=== PATIENT | male | born 1990 | race Caucasian/White ===

== ENCOUNTER 2017-02-04 18:31 | Emergency (ER) | payer SELFPAY ==
[~2017-02-04] VITALS: Ht 177.8 cm; Wt 59.0 kg
[~2017-02-04 18:31] MED LIST: IBUP800T23 PO; TRAM50 PO; Z.0.NO CURRENT MEDS
[2017-02-04 18:33] VITALS: BP 160/76; PULSE 106; RESP 20; TEMP 98.8; O2SAT 97
--- NOTE | 2017-02-04 18:52 | PD ---
HPI Chief Complaint: Laceration/Skin Injury Time Seen by Provider: 18:47 Travel History International Travel<30 days: No Contact w/Intl Traveler<30days: No Traveled to known affect area: No History of Present Illness HPI Patient is a 26-year-old male presenting to emergency department evaluation of a laceration to his left wrist. Patient was putting a lawnmower back together when he cut his wrist on the blade. Patient states the area is sore, bleeding is controlled pain is a 3 out of 10. The patient is not up-to-date with tetanus vaccine. He has an allergy to pertussis. He has no other complaints at this time. He denies any numbness or tingling or weakness in his left arm and hand. PFSH Past Medical History Medical History: Denies Significant Hx ADHD: No Cancer: No Cardiovascular Problems: No Diabetes: No Diminished Hearing: No Psychiatric: No Migraines: No Seizures: No Thyroid Disease: No Ulcer: No Tetanus Vaccination: > 5 Years Past Surgical History Appendectomy: No Cholecystectomy: No Other Surgery: Yes (VARICELE REPAIR) Social History Alcohol Use: Yes (OCCASIONAL) Tobacco Use: Yes (1 PPD) Substance Use: No (OCC WEED) Allergies-Medications (Allergen,Severity, Reaction): Coded Allergies: Pertussis Vaccine (Verified Allergy, Mild, 01/29/14) Blue Dyes - Various (Verified Allergy, 01/29/14) Reported Meds & Prescriptions Reported Meds & Active Scripts Active Ibuprofen 800 Mg Tab 800 Mg PO TID PRN 10 Days Ultram (Tramadol HCl) 50 Mg Tab 50 Mg PO Q6 PRN FOR PAIN Reported No Current Meds (Miscellaneous Medication) Misc Review of Systems Except as stated in HPI: all other systems reviewed are Neg Skin: Positive Other (abrasion) Physical Exam Narrative GENERAL: Well-nourished, well-developed patient. SKIN: Focused skin assessment warm/dry. 1.5 cm superficial abrasion to left wrist on the palmar aspect. Positive radial pulse, brisk wasn't 3 second capillary refill. Patient is neurovascularly intact with full range of motion in left hand. HEAD: Normocephalic. EYES: No scleral icterus. No injection or drainage. NECK: Supple, trachea midline. No JVD or lymphadenopathy. CARDIOVASCULAR: Regular rate and rhythm without murmurs, gallops, or rubs. RESPIRATORY: Breath sounds equal bilaterally. No accessory muscle use. GASTROINTESTINAL: Abdomen soft, non-tender, nondistended. MUSCULOSKELETAL: No cyanosis, or edema. BACK: Nontender without obvious deformity. No CVA tenderness. Data Data Last Documented VS Vital Signs Date Time Temp Pulse Resp B/P Pulse Ox O2 Delivery O2 Flow Rate FiO2 02/04/17 18:33 98.8 106 20 160/76 97 Room Air MDM Medical Decision Making Medical Screen Exam Complete: Yes Emergency Medical Condition: Yes Interpretation(s) Vital Signs Date Time Temp Pulse Resp B/P Pulse Ox O2 Delivery O2 Flow Rate FiO2 02/04/17 18:33 98.8 106 20 160/76 97 Room Air Differential Diagnosis Laceration versus abrasion versus hemorrhage versus other Narrative Course Patient is a 26-year-old male presenting to the emergency room evaluation of an abrasion to his left wrist. Abrasion is very superficial, there is no active bleeding. Patient will be updated on his tetanus vaccine today. Wound will be thoroughly cleaned and dressed. Patient is encouraged to keep abrasion clean and dry and apply topical antibiotic ointment. He is encouraged to return to emergency department for any new or worsening symptoms. Patient verbalized understanding of instructions. Patient is stable for discharge. Diagnosis Primary Impression: Abrasion of wrist Qualified Code: S60.812A - Abrasion of wrist, left, initial encounter Additional Impressions: Need for vaccine for TD (tetanus-diphtheria) Encounter for vaccination Referrals: Primary Care Physician Patient Instructions: Abrasion (ED), Acute Wound Care (ED), General Instructions Additional Instructions: Keep abrasion clean and dry, apply topical antibiotic ointment and a Band-Aid Return to emergency department for any new or worsening symptoms Med/Other Pt SpecificInfo: No Change to Meds Disposition: 01 DISCHARGE HOME Condition: Stable Joanne Gregg CONTRACT ADMIN Feb 04, 2017 18:52
[2017-02-04] MEDS ORDERED: TETANUS/DIPHTHERIA TOXOID ADULT 0.5 ML VIAL IM ONE (19:00)
[2017-02-04 19:10] VITALS: BP 135/77
== END 2017-02-04 19:10 | disposition home or self-care (01) ==
LOC: NEPK 18:31
DX: S60.812A Abrasion of left wrist, initial encounter (principal); W45.8XXA Other foreign body or object entering through skin, initial encounter; Y93.89 Activity, other specified; Z23 Encounter for immunization
CPT/HCPCS: 90471; 90714

== ENCOUNTER 2017-08-08 18:21 | Inpatient (IN) | payer SELFPAY ==
[~2017-08-08] VITALS: Ht 177.8 cm; Wt 57.0 kg
[2017-08-08 18:25] VITALS: BP 142/78; PULSE 88; RESP 15; TEMP 98.4; O2SAT 97
--- NOTE | 2017-08-08 20:26 | PD ---
HPI Chief Complaint: Psychiatric Symptoms Time Seen by Provider: 19:53 Travel History International Travel<30 days: No Contact w/Intl Traveler<30days: No Traveled to known affect area: No History of Present Illness HPI 26-year-old male with history of bipolar disorder, anxiety, depression, schizoaffective disorder who has been off of his psychiatric meds for 1 year presents requesting psychiatric evaluation. Patient reports he has been hearing voices which are telling him to "hurt himself" for the last week. Patient reports that he has been able to manage these auditory hallucinations on his own but they're becoming more frequent and interfering with his daily life. He denies previous suicide attempts. He denies homicidal ideation. He is accompanied by his girlfriend. He denies any recent alcohol or illicit drug use. He does report to marijuana occasionally. [facility]LY [facility] Past Medical History Narrative Medical Anxiety, depression, bipolar disorder, schizoaffective disorder ADHD: No Cancer: No Cardiovascular Problems: No Diabetes: No Diminished Hearing: No Psychiatric: No Migraines: No Seizures: No Thyroid Disease: No Ulcer: No Past Surgical History Appendectomy: No Cholecystectomy: No Other Surgery: Yes (VARICELE REPAIR) Social History Alcohol Use: Yes (OCCASIONAL) Tobacco Use: Yes (1 PPD) Substance Use: No (OCC WEED) Allergies-Medications (Allergen,Severity, Reaction): Coded Allergies: Pertussis Vaccines (Unverified Allergy, Mild, 06/09/17) blue dye (Unverified Allergy, Unknown, 06/09/17) Reported Meds & Prescriptions Reported Meds & Active Scripts Active Ibuprofen 800 Mg Tab 800 Mg PO TID PRN 10 Days Ultram (Tramadol HCl) 50 Mg Tab 50 Mg PO Q6 PRN FOR PAIN Reported No Current Meds (Miscellaneous Medication) Misc Physical Exam Narrative GENERAL: Patient is calm and cooperative interacting appropriately with provider and staff SKIN: Warm and dry. HEAD: Normocephalic. EYES: No scleral icterus. No injection or drainage. NECK: Supple, trachea midline. No JVD or lymphadenopathy. CARDIOVASCULAR: Regular rate and rhythm without murmurs, gallops, or rubs. RESPIRATORY: Breath sounds equal bilaterally. No accessory muscle use. GASTROINTESTINAL: Abdomen soft, non-tender, nondistended. MUSCULOSKELETAL: No cyanosis, or edema. BACK: Nontender without obvious deformity. No CVA tenderness. PSYCHIATRIC: No delusional thought processes. No hallucinations. Data Data Last Documented VS Vital Signs Date Time Temp Pulse Resp B/P (MAP) Pulse Ox O2 Delivery O2 Flow Rate FiO2 08/08/17 18:25 98.4 88 15 142/78 (99) 97 Orders Orders Complete Blood Count With Diff (08/08/17 20:01) Comprehensive Metabolic Panel (08/08/17 20:01) Psych Screen (08/08/17 20:01) Drug Screen, Random Urine (08/08/17 20:01) MDM Medical Decision Making Medical Screen Exam Complete: Yes Emergency Medical Condition: Yes Differential Diagnosis bipolar disorder, mood disorder, schizoaffective disorder, suicidal ideation Narrative Course 26 year old male voluntarily requesting psychiatric evaluation. Patient has a history of bipolar disorder, schizoaffective disorder, anxiety, depression and has been off his meds for 1 year. He reports he has been hearing voices which are telling him to hurt himself. He will not elaborate on specifics. He reports that he has been able to control these thoughts and voices but they're now affecting his daily life. He denies homicidal ideation. He denies previous history of suicide attempts. Patient is here with his girlfriend. He will be evaluated and once medically cleared seat psychiatric evaluation. Mental health screening discussed with the patient. Psychiatric screen ordered. end of shift with labs pending. Carmelo BARONE will follow patient from this point. Monica Davila Aug 08, 2017 20:25
[2017-08-08 20:44] LABS: AUTOMATED NEUTROPHIL # 4.1 TH/MM3 (1.8-7.7); BASOPHIL # 0.1 TH/MM3 (0-0.2); BASOPHIL % 0.9 % (0.0-2.0); EOSINOPHIL % 0.3 % (0.0-4.0); HEMO FLAGS DIFF FINAL; LYMPH % 27.4 % (9.0-44.0); LYMPHOCYTE # 1.7 TH/MM3 (1.0-4.8); MEAN CELL VOLUME 90.2 FL (80.0-100.0); MEAN CORPUSCULAR HEMOGLOBIN 30.9 PG (27.0-34.0); MEAN CORPUSCULAR HGB CONC 34.2 % (32.0-36.0); MONO % 6.4 % (0.0-8.0); PLATELET COUNT 252 TH/MM3 (150-450); RED BLOOD COUNT 4.43 MIL/MM3 (4.50-5.90); RED CELL DISTRIBUTION WIDTH 12.7 % (11.6-17.2); WHITE BLOOD COUNT 6.3 TH/MM3 (4.0-11.0)
[2017-08-08 20:59] LABS: ANION GAP 7 MEQ/L (5-15); BICARBONATE 26.8 MEQ/L (21.0-32.0); BLOOD UREA NITROGEN 12 MG/DL (7-18); CHLORIDE 105 MEQ/L (98-107); GLOMERULAR FILTRATION RATE 78 ML/MIN (>89); POTASSIUM 3.4 MEQ/L (3.5-5.1); SODIUM (NA) 139 MEQ/L (136-145)
[2017-08-08 21:00] LABS: ALT (GPT) 22 U/L (12-78); AST (GOT) 16 U/L (15-37)
[2017-08-08 21:02] LABS: ALKALINE PHOSPHATASE 50 U/L (45-117); TOTAL BILIRUBIN ADULT 0.6 MG/DL (0.2-1.0)
--- NOTE | 2017-08-08 21:20 | PD ---
Physical Exam Date Seen by Provider: Aug 08, 2017 Time Seen by Provider: 21:18 Data Data Last Documented VS Vital Signs Date Time Temp Pulse Resp B/P (MAP) Pulse Ox O2 Delivery O2 Flow Rate FiO2 08/08/17 18:25 98.4 88 15 142/78 (99) 97 Orders Orders Complete Blood Count With Diff (08/08/17 20:01) Comprehensive Metabolic Panel (08/08/17 20:01) Psych Screen (08/08/17 20:01) Drug Screen, Random Urine (08/08/17 20:01) Labs Laboratory Tests Test 08/08/17 20:10 08/08/17 20:12 White Blood Count 6.3 TH/MM3 Red Blood Count 4.43 MIL/MM3 Hemoglobin 13.7 GM/DL Hematocrit 40.0 % Mean Corpuscular Volume 90.2 FL Mean Corpuscular Hemoglobin 30.9 PG Mean Corpuscular Hemoglobin Concent 34.2 % Red Cell Distribution Width 12.7 % Platelet Count 252 TH/MM3 Mean Platelet Volume 9.4 FL Neutrophils (%) (Auto) 65.0 % Lymphocytes (%) (Auto) 27.4 % Monocytes (%) (Auto) 6.4 % Eosinophils (%) (Auto) 0.3 % Basophils (%) (Auto) 0.9 % Neutrophils # (Auto) 4.1 TH/MM3 Lymphocytes # (Auto) 1.7 TH/MM3 Monocytes # (Auto) 0.4 TH/MM3 Eosinophils # (Auto) 0.0 TH/MM3 Basophils # (Auto) 0.1 TH/MM3 CBC Comment DIFF FINAL Differential Comment Blood Urea Nitrogen 12 MG/DL Creatinine 1.13 MG/DL Random Glucose 106 MG/DL Total Protein 7.5 GM/DL Albumin 4.5 GM/DL Calcium Level 9.5 MG/DL Alkaline Phosphatase 50 U/L Aspartate Amino Transf (AST/SGOT) 16 U/L Alanine Aminotransferase (ALT/SGPT) 22 U/L Total Bilirubin 0.6 MG/DL Sodium Level 139 MEQ/L Potassium Level 3.4 MEQ/L Chloride Level 105 MEQ/L Carbon Dioxide Level 26.8 MEQ/L Anion Gap 7 MEQ/L Estimat Glomerular Filtration Rate 78 ML/MIN Urine Opiates Screen NEG Urine Barbiturates Screen NEG Urine Amphetamines Screen NEG Urine Benzodiazepines Screen NEG Urine Cocaine Screen NEG Urine Cannabinoids Screen POS MDM Medical Record Reviewed: Yes Supervised Visit with GE: Yes Interpretation(s) Laboratory Tests Test 08/08/17 20:10 08/08/17 20:12 White Blood Count 6.3 TH/MM3 Red Blood Count 4.43 MIL/MM3 Hemoglobin 13.7 GM/DL Hematocrit 40.0 % Mean Corpuscular Volume 90.2 FL Mean Corpuscular Hemoglobin 30.9 PG Mean Corpuscular Hemoglobin Concent 34.2 % Red Cell Distribution Width 12.7 % Platelet Count 252 TH/MM3 Mean Platelet Volume 9.4 FL Neutrophils (%) (Auto) 65.0 % Lymphocytes (%) (Auto) 27.4 % Monocytes (%) (Auto) 6.4 % Eosinophils (%) (Auto) 0.3 % Basophils (%) (Auto) 0.9 % Neutrophils # (Auto) 4.1 TH/MM3 Lymphocytes # (Auto) 1.7 TH/MM3 Monocytes # (Auto) 0.4 TH/MM3 Eosinophils # (Auto) 0.0 TH/MM3 Basophils # (Auto) 0.1 TH/MM3 CBC Comment DIFF FINAL Differential Comment Blood Urea Nitrogen 12 MG/DL Creatinine 1.13 MG/DL Random Glucose 106 MG/DL Total Protein 7.5 GM/DL Albumin 4.5 GM/DL Calcium Level 9.5 MG/DL Alkaline Phosphatase 50 U/L Aspartate Amino Transf (AST/SGOT) 16 U/L Alanine Aminotransferase (ALT/SGPT) 22 U/L Total Bilirubin 0.6 MG/DL Sodium Level 139 MEQ/L Potassium Level 3.4 MEQ/L Chloride Level 105 MEQ/L Carbon Dioxide Level 26.8 MEQ/L Anion Gap 7 MEQ/L Estimat Glomerular Filtration Rate 78 ML/MIN Urine Opiates Screen NEG Urine Barbiturates Screen NEG Urine Amphetamines Screen NEG Urine Benzodiazepines Screen NEG Urine Cocaine Screen NEG Urine Cannabinoids Screen POS Differential Diagnosis MDM: High Differential diagnoses: Schizophrenia, schizoaffective disorder, bipolar, anxiety, depression, adjustment reaction, mood disorder NOS, ODD, depressive disorder NOS, dementia, dementia with agitation, psychosis NOS, substance induced mood disorder, intermittent explosive disorder, Asperger syndrome, infection,electrolyte abnormality, malingering. Narrative Course Mental health screening discussed with the patient. Psychiatric screen ordered. Patient's medically clear. This is medical clearance for psychiatric admission, schizoaffective disorder Diagnosis Primary Impression: Medical clearance for psychiatric admission Additional Impression: Schizoaffective disorder, bipolar type Condition: Stable Barron Hilliard Aug 08, 2017 21:20
[2017-08-09 00:19] VITALS: BP 139/86; PULSE 71; RESP 18; O2SAT 99
[2017-08-09 02:51] VITALS: BP 132/80; PULSE 51; RESP 16; O2SAT 99
[2017-08-09 06:27] VITALS: BP 121/63; PULSE 61; RESP 18
[2017-08-09] MEDS ORDERED: LORazepam 2 MG/ML VIAL IM PRN ×2 (08:30)
[2017-08-09] MEDS ORDERED: LORazepam 0.5 MG TAB PO PRN (08:30)
[2017-08-09] MEDS ORDERED: ALUMINUM/MAGNESIUM/SIMETH 30 ML CUP PO PRN (08:30)
[2017-08-09] MEDS ORDERED: ACETAMINOPHEN 325 MG TAB PO PRN (08:30)
[2017-08-09] MEDS ORDERED: MAGNESIUM HYDROXIDE SUSP 30 ML CUP PO PRN (08:30)
[2017-08-09] MEDS: NICOTINE 21 MG/24 HR PATCH T-DERMAL SCH (09:00)
[2017-08-09 11:32] VITALS: BP 120/65
[2017-08-09 14:21] VITALS: BP 124/57; PULSE 74; RESP 18; TEMP 98; O2SAT 99
[2017-08-09] MEDS: LORazepam 1 MG TAB PO PRN (14:35)
[2017-08-10] MEDS: LORazepam 1 MG TAB PO PRN ×2 (00:16→09:35)
[2017-08-10 05:29] VITALS: BP 118/61; PULSE 56; RESP 16; TEMP 97.6; O2SAT 98
[2017-08-10] MEDS: NICOTINE 21 MG/24 HR PATCH T-DERMAL SCH (08:19)
[2017-08-10 10:57] LABS: ANION GAP 8 MEQ/L (5-15); BICARBONATE 28.9 MEQ/L (21.0-32.0); BLOOD UREA NITROGEN 10 MG/DL (7-18); CHLORIDE 105 MEQ/L (98-107); GLOMERULAR FILTRATION RATE 91 ML/MIN (>89); POTASSIUM 3.6 MEQ/L (3.5-5.1); SODIUM (NA) 142 MEQ/L (136-145)
[2017-08-10 11:00] LABS: HDL CHOLESTEROL 59.3 MG/DL (40.0-60.0); LDL CHOLESTEROL 57 MG/DL (0-99)
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
[2017-08-10 15:03] LABS: HEMOGLOBIN A1a 0.8 %; HEMOGLOBIN A1b 1.5 %; HEMOGLOBIN LA1C 1.7 %; HEMOGLOBIN P3 3.2 %
[2017-08-10] MEDS: hydrOXYzine HCL 50 MG TAB PO PRN ×2 (15:20→20:42)
[2017-08-10 17:33] VITALS: BP 105/44; PULSE 64; RESP 18; TEMP 98; O2SAT 98
[2017-08-10] MEDS ORDERED: ZIPRASIDONE HCL 40 MG CAP PO SCH (18:00)
[2017-08-10] MEDS: OLANZapine 10 MG TAB PO SCH (20:42)
[2017-08-11 05:57] VITALS: BP 109/58; PULSE 49; RESP 16; TEMP 97.6; O2SAT 98
--- NOTE | 2017-08-11 12:19 | HHI.PYPN ---
Subjective Remarks Patient seen and examined. Chart reviewed. Case discussed in treatment team. Per nursing staff, no behavioral issues overnight. On my examination today, the patient presents as mildly irritable. He complains of feeling somewhat lightheaded, and he attributes this to the Atarax. We discussed decreasing the dose, checking a set of orthostatics and safe standing procedures to manage this issue. Patient is pleased to be back on Zyprexa and says that his paranoia is decreasing. He denies any audiovisual hallucinations. Denies any suicidal or homicidal ideation. Denies any other side effects from medications. No physical complaints. Hopeful for discharge tomorrow. Records from [facility] received, and I have reviewed these. Patient was on Zyprexa and Trileptal per records. Review of Systems Except as stated in HPI: all other systems reviewed are Neg Mental Status Examination Appearance: Appropriate Consciousness: Alert Orientation: x4 Motor Activity: Other (no abnormal motor movements noted) Speech: Unremarkable Language: Adequate Fund of Knowledge: Adequate Attention and Concentration: Adequate Mood: Other (improving) Affect: Blunt Thought Process & Associations: Logical, Linear Hallucination Type: None Delusion Type: None Suicidal Ideation: No Suicidal Plan: No Suicidal Intention: No Homicidal Ideation: No Homicidal Plan: No Homicidal Intention: No Insight: Fair Judgment: Impulsive Results Labs Labs reviewed. Vitals/IOs Vital Signs Date Time Temp Pulse Resp B/P (MAP) Pulse Ox O2 Delivery O2 Flow Rate FiO2 08/11/17 05:57 97.6 49 16 109/58 (75) 98 08/09/17 00:19 Room Air Assessment & Plan Problem List: (1) Adjustment disorder with mixed disturbance of emotions and conduct ICD Codes: F43.25 - Adjustment disorder with mixed disturbance of emotions and conduct (2) Cannabis abuse ICD Codes: F12.10 - Cannabis abuse, uncomplicated Assessment & Plan Continue Zyprexa as ordered. Given that the patient is experiencing some reported side effects from medications, I will hold off on adjusting this agent and/or adding in Trileptal, although this might be considered on an outpatient basis. Check a set of orthostatics. Fall precautions. Continue other medications and care as ordered. Justification for Cont. Inpt. Monitoring for impairments in safety, none noted. Discharge Planning Possible discharge home tomorrow with outpatient psychiatric follow up. Case discussed with counselor. Request HC Surrog/Guard Advoc?: No Piotr Crenshaw MD Aug 11, 2017 12:19
[2017-08-11 12:30] VITALS: BP_SYST 119; BP_SYST 120; BP_DIAS 65; BP_DIAS 66; BP_DIAS 72
[2017-08-11] MEDS ORDERED: PILL SPLITTER OTHER PRN (14:15)
[2017-08-11] MEDS ORDERED: hydrOXYzine HCL 50 MG TAB PO PRN (18:00)
[2017-08-11 18:13] VITALS: BP 120/66; PULSE 53; RESP 17; TEMP 98.2; O2SAT 100
[2017-08-11] MEDS: OLANZapine 10 MG TAB PO SCH (20:39)
[2017-08-12 06:14] VITALS: BP 105/67; PULSE 50; RESP 18; TEMP 98; O2SAT 98
--- NOTE | 2017-08-12 07:14 | EKG ---
Date Performed: 08/10/2017 Time Performed: 14:42:38 PTAGE: 26 years EKG: Sinus rhythm MINIMAL VOLTAGE CRITERIA FOR LVH, CONSIDER NORMAL VARIANT BORDERLINE ECG Since PREVIOUS TRACING , no significant change noted PREVIOUS TRACIN04/27/2007 12.12 DOCTOR: Vitaliy Evangelista Interpretating Date/Time 08/12/2017 07:14:29
[2017-08-12] MEDS ORDERED: OLAN10TA PO (09:52)
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
== END 2017-08-12 11:20 | disposition home or self-care (01) | DRG 882 ==
LOC: NEPD 18:21 → NEDA 08-09 08:28 → H260 08-09 14:05
PROVIDERS: ADMIT Psychiatry & Neurology Psychiatry; ATTEND Psychiatry & Neurology Psychiatry
DX: F43.25 Adjustment disorder with mixed disturbance of emotions and conduct (principal); F25.0 Schizoaffective disorder, bipolar type; F12.10 Cannabis abuse, uncomplicated; F90.9 Attention-deficit hyperactivity disorder, unspecified type; Z72.0 Tobacco use; Z81.1 Family history of alcohol abuse and dependence; Z81.8 Family history of other mental and behavioral disorders; F22 Delusional disorders; F91.3 Oppositional defiant disorder
CPT/HCPCS: 80048; 80053; 80061; 80307; 83036; 85025; 93005